=== PATIENT | female | born 1990 | race American Indian/Alaskan Native ===

== ENCOUNTER 2020-09-24 01:05 | Emergency (ER) | payer OTHER ==
[2020-09-24] MEDS ORDERED: SODIUM CHLORIDE 0.9% 1000 ML 1,000 ML IV ONE ×2 (01:23→02:40)
--- NOTE | 2020-09-24 01:24 | Event Note ---
ED Screening Note Date of service: 09/24/20 Time: :23 ED Screening Note: Patient diagnosed with Covid 1 week ago states worsening symptoms with shortness of breath and palpitations now. Patient is is not using current home supplemental O2 nor antibiotics. This initial assessment/diagnostic orders/clinical plan/treatment(s) is/are subject to change based on patients health status, clinical progression and re- assessment by fellow clinical providers in the ED. Further treatment and workup at subsequent clinical providers discretion. Patient/guardian urged not to elope from the ED as their condition may be serious if not clinically assessed and managed. Initial orders include:
[2020-09-24 01:52] LABS: Basophils # (Auto) 0.1 K/mm3 (0.0-0.1); Basophils % (Auto) 0.7 % (0.0-1.8); Eosinophils # (Auto) 0.1 K/mm3 (0.0-0.4); Eosinophils % (Auto) 1.5 % (0.0-4.3); Hematocrit 37.6 % (30.3-42.9); Hemoglobin 12.7 gm/dl (10.1-14.3); Lymphocytes # (Auto) 3.3 K/mm3 (1.2-5.4); Lymphocytes % (Auto) 38.2 % (13.4-35.0); Mean Corpuscular HGB Conc 34 % (30-34); Mean Corpuscular Volume 85 fl (79-97); Monocytes # (Auto) 0.7 K/mm3 (0.0-0.8); Monocytes % (Auto) 7.7 % (0.0-7.3); Platelet Count 386 K/mm3 (140-440); Red Blood Count 4.45 M/mm3 (3.65-5.03); Red Cell Distribution Width 13.9 % (13.2-15.2)
[2020-09-24 02:02] LABS: INR 0.93 (0.87-1.13)
[2020-09-24 02:03] LABS: Partial Thromboplastin Time 27.4 Sec. (24.2-36.6)
[2020-09-24 02:12] LABS: Alanine Aminotransferase 12 units/L (7-56); Albumin 4.8 g/dL (3.9-5); BUN/Creatinine Ratio 19; Blood Urea Nitrogen 15 mg/dL (7-17); Calcium 9.8 mg/dL (8.4-10.2); Hemolysis Index 0
--- NOTE | 2020-09-24 02:47 | Emergency Department Report ---
ED Chest Pain HPI - General Chief Complaint: Chest Pain Stated Complaint: CHEST PAIN/EMELY PUI?: No Time Seen by Provider: 09/24/20 02:39 Source: patient Mode of arrival: Ambulatory Limitations: No Limitations - History of Present Illness Initial Comments: Patient is a 30-year-old female that presents emergency room with complaints of palpitations, racing heart, chest pain and difficulty breathing. Patient states her symptoms have improved since she arrived in the hospital. Patient states her symptoms awoke her from her sleep. Patient states that her symptoms are better with rest. Patient states that her pain is a 7 out of 10. Patient states her chest pain is better with rest and worse with movement and palpation. Patient states her shortness of breath is better with rest and worse with exertion. Patient states she was recently diagnosed with Covid on September 14, 2020. Patient states she also has a dry cough. Patient denies fever and chills. Patient complains of malaise. Patient denies loss of smell. Patient denies nausea vomiting. MD Complaint: chest pain -: Sudden Onset: during rest, awoke with symptoms Pain Location: substernal Pain Radiation: none Severity scale (0 -10): 7 Quality: sharp Consistency: constant Improves With: rest Worsens With: palpation, movement re: dyspnea. denies: nausea, vomting, diaphoresis, sense of impending doom Other Symptoms: cough, palpitations. denies: fever, syncope, rash, acid taste in mouth, leg swelling, burping Treatments Prior to Arrival: none - Related Data Previous Rx's Medication Instructions Recorded Last Taken Type Azithromycin [Zithromax TAB] 500 mg PO QDAY 5 Days #5 tablet 09/24/20 Unknown Rx Allergies Allergy/AdvReac Type Severity Reaction Status Date / Time prednisolone Allergy Hives Verified 09/24/20 01:34 Heart Score - HEART Score History: Slightly suspicious EKG: Normal Age: < 45 Risk factors: No known risk factors Troponin: < normal limit HEART Score: 0 ED Review of Systems ROS: Stated complaint: CHEST PAIN/EMELY Other details as noted in HPI Constitutional: malaise. denies: chills, fever Eyes: denies: eye pain, eye discharge, vision change ENT: denies: ear pain, throat pain Respiratory: see HPI, cough, shortness of breath. denies: wheezing Cardiovascular: chest pain, palpitations Endocrine: no symptoms reported Gastrointestinal: denies: abdominal pain, nausea, vomiting, diarrhea Genitourinary: denies: urgency, dysuria, discharge Musculoskeletal: denies: back pain, joint swelling, arthralgia Skin: denies: rash, lesions Neurological: denies: headache, weakness, paresthesias Psychiatric: denies: anxiety, depression Hematological/Lymphatic: denies: easy bleeding, easy bruising ED Past Medical Hx - Past Medical History Previous Medical History?: Yes Hx Hypertension: Yes - Surgical History Past Surgical History?: No - Family History Family history: no significant - Social History Smoking Status: Never Smoker Substance Use Type: None - Medications Home Medications: Home Medications Medication Instructions Recorded Confirmed Last Taken Type Azithromycin [Zithromax TAB] 500 mg PO QDAY 5 Days #5 tablet 09/24/20 Unknown Rx ED Physical Exam - General Limitations: No Limitations General appearance: alert, in no apparent distress - Head Head exam: Present: atraumatic, normocephalic - Eye Eye exam: Present: normal appearance - ENT ENT exam: Present: mucous membranes moist - Neck Neck exam: Present: normal inspection - Respiratory Respiratory exam: Present: normal lung sounds bilaterally, chest wall tenderness (Tenderness to the chest wall. Palpation of the chest wall reproduces symptoms.). Absent: respiratory distress - Cardiovascular Cardiovascular Exam: Present: regular rate, normal rhythm. Absent: systolic murmur, diastolic murmur, rubs, gallop - GI/Abdominal GI/Abdominal exam: Present: soft, normal bowel sounds - Extremities Exam Extremities exam: Present: normal inspection - Back Exam Back exam: Present: normal inspection - Neurological Exam Neurological exam: Present: alert, oriented X3 - Psychiatric Psychiatric exam: Present: normal affect, normal mood - Skin Skin exam: Present: warm, dry, intact, normal color. Absent: rash ED Course Vital Signs 09/24/20 09/24/20 09/24/20 02:40 03:38 03:45 Temperature 98.1 F Pulse Rate 102 H Respiratory 18 16 Rate Blood Pressure 150/96 Blood Pressure 146/91 [Left] O2 Sat by Pulse 100 98 100 Oximetry 09/24/20 09/24/20 09/24/20 03:49 03:53 04:01 Temperature 98.1 F Pulse Rate 86 91 H Respiratory 14 16 16 Rate Blood Pressure 150/96 Blood Pressure 150/96 [Left] O2 Sat by Pulse 100 100 100 Oximetry 09/24/20 09/24/20 09/24/20 04:15 04:31 04:45 Temperature Pulse Rate 90 92 H 92 H Respiratory 13 18 13 Rate Blood Pressure 128/75 128/75 136/81 Blood Pressure [Left] O2 Sat by Pulse 100 100 100 Oximetry 09/24/20 09/24/20 09/24/20 05:01 05:15 05:23 Temperature Pulse Rate 110 H 94 H 94 H Respiratory 24 14 14 Rate Blood Pressure 136/81 135/82 Blood Pressure 135/82 [Left] O2 Sat by Pulse 100 100 Oximetry - Reevaluation(s) Reevaluation #1: Patient states she is feeling much better. I discussed all results and clinical findings with patient. I discussed plan of care with patient. Patient agrees with plan of care. Patient is stable for discharge. Patient will be discharged home. Patient given discharge instructions. Patient voiced understanding of discharge instructions. 09/24/20 05:44 NOEL score - Noel Score Age > 65: (0) No Aspirin use within the Past 7 Days: (0) No 3 or more CAD Risk Factors: (0) No 2 or more Angina events in past 24 hrs: (0) No Known CAD with more than 50% Stenosis: (0) No Elevated Cardiac Markers: (0) No ST Deviation Greater than 0.5mm: (0) No NOEL Score: 0 ED Medical Decision Making - Lab Data Result diagrams: 09/24/20 01:33 09/24/20 01:33 - EKG Data -: EKG Interpreted by Me EKG shows normal: sinus rhythm, axis, intervals, QRS complexes, ST-T waves Rate: tachycardia - Radiology Data Radiology results: report reviewed, image reviewed interpreted by me: Chest x-ray: No pneumonia, no pneumothorax, no foreign body, no osseous findings, no acute findings CT ANGIOGRAPHY OF THE CHEST WITH INTRAVENOUS CONTRAST AND MULTIPLANAR MIP RECONSTRUCTIONS INDICATION / CLINICAL INFORMATION: Palpitations and elevated d-dimer. COVID positive. TECHNIQUE: Axial CT images were obtained after injection of 100 cc Omnipaque 350 IV contrast using CTA protocol. 3 plane MIP / 3D reconstructions were produced. All CT scans at this location are perfo rmed using CT dose reduction for ALARA by means of automated exposure control. COMPARISON: None available. FINDINGS: There is good opacification of the pulmonary arterial system bilaterally without intraluminal filling defect to suggest acute PTE. The thoracic aorta is normal in caliber without dissection. The visualized coronary vessels are normal. The tracheobronchial tree is normal. The lung parenchyma is clear. There is no evidence of adenopathy or effusion. There is a small cyst in the right lobe of the liver. The visualized upper abdomen is otherwise unremarkable. No acute osseous abnormality is seen. IMPRESSION: No evidence of acute PTE. - Medical Decision Making Patient is a 30-year-old female that presents emergency room with complaints of palpitation, chest pain, difficulty breathing. Patient's also complained of being Covid positive and a cough. Patient chest pain is reproducible on palpation. Patient's chest pain shortness of breath are better with rest. Patient had elevated D-dimer and had a CT scan done. Patient had a CTA of the chest to rule out PE. Patient chest CTA was negative for acute findings and no PE noted. Patient's clinical findings are consistent with chest wall pain COVID-19. Patient's labs are essentially unremarkable. Patient had a negative troponins. Patient's initial lactic acid elevated but the repeat was negative prior to fluids being given. Patient's information was faxed over to her local plant engineering manager for further evaluation and treatment and risk stratification. Patient will be given treatment for COVID-19. Patient given discharge instructions. Patient stable for discharge. - Differential Diagnosis Chest pain, Covid,, difficulty breathing, palpitations, cough Critical care attestation.: If time is entered above; I have spent that time in minutes in the direct care of this critically ill patient, excluding procedure time. ED Disposition Clinical Impression: Costochondritis, Shortness of breath, Heart palpitations, COVID-19 Chest pain Qualifiers: Chest pain type: unspecified Qualified Code(s): R07.9 - Chest pain, unspecified URI (upper respiratory infection) Qualifiers: URI type: unspecified URI Qualified Code(s): J06.9 - Acute upper respiratory infection, unspecified Disposition: - TO HOME OR SELFCARE Is pt being admited?: No Does the pt Need Aspirin: No Condition: Stable Instructions: COVID-19 Frequently Asked Questions, Costochondritis, [id number], COVID-19, Cough, Adult, [id number], Shortness of Breath, Adult, COVID-19: How to Protect Yourself and Others - CDC, Prevent the Spread of COVID- 19 if You Are Sick - CDC, Chest Pain (ED) Additional Instructions: Patient to follow-up with primary care in 2 to 3 days. Patient to follow-up [facility] plant engineering manager in 2 to 3 days. Patient to self quarantine for 10 to 14 days. Patient to rest. Patient to increase water. Patient to take vitamin C, vitamin D and zinc supplements. Patient to avoid strenuous exercise or heavy lifting until cleared by primary care and plant engineering manager. Patient to take Tylenol or ibuprofen as needed for pain. Patient to take meds as directed. Patient to return to the ER if condition worsens, changes or new symptoms arise. Prescriptions: Azithromycin [Zithromax TAB] 500 mg PO QDAY 5 Days #5 tablet Referrals: PRIMARY MD CJ [Primary Care Provider] - 2-3 Days REMY FARRIS MD [Staff Physician] - 2-3 Days Time of Disposition: 05:50
--- NOTE | 2020-09-24 03:58 | Cat Scan Report ---
CT ANGIOGRAPHY OF THE CHEST WITH INTRAVENOUS CONTRAST AND MULTIPLANAR MIP RECONSTRUCTIONS INDICATION / CLINICAL INFORMATION: Palpitations and elevated d-dimer. COVID positive. TECHNIQUE: Axial CT images were obtained after injection of 100 cc Omnipaque 350 IV contrast using CTA protocol. 3 plane MIP / 3D reconstructions were produced. All CT scans at this location are performed using CT dose reduction for ALARA by means of automated exposure control. COMPARISON: None available. FINDINGS: There is good opacification of the pulmonary arterial system bilaterally without intraluminal filling defect to suggest acute PTE. The thoracic aorta is normal in caliber without dissection. The visuali zed coronary vessels are normal. The tracheobronchial tree is normal. The lung parenchyma is clear. There is no evidence of adenopathy or effusion. There is a small cyst in the right lobe of the liver. The visualized upper abdomen is otherwise unrem arkable. No acute osseous abnormality is seen. IMPRESSION: No evidence of acute PTE. Signer Name: Kang Mcmillan MD Signed: 09/24/2020 3:54 AM Workstation Name: [id number]
[2020-09-24 04:34] LABS: HCG Qualitative,Urine Negative (Negative)
[2020-09-24 05:23] VITALS: BP 135/82
--- NOTE | 2020-09-24 05:56 | XRay Report ---
CHEST 1 VIEW 5:36 AM INDICATION / CLINICAL INFORMATION: Shortness of breath. COMPARISON: None available. FINDINGS: SUPPORT DEVICES: None. HEART / MEDIASTINUM: The heart size and pulmonary vasculature are normal. LUNGS / PLEURA: No significant pulmonary or pleural abnormality. No pneumothorax. ADDITIONAL FINDINGS: No significant additional findings. IMPRESSION: No acute findings. Signer Name: Kang Mcmillan MD Signed: 09/24/2020 5:51 AM Workstation Name: [id number]
== END 2020-09-24 06:28 | disposition home or self-care (01) ==
LOC: ED 01:05
DX: U07.1 COVID-19 (principal); J06.9 Acute upper respiratory infection, unspecified; M94.0 Chondrocostal junction syndrome [Tietze]; R06.02 Shortness of breath; R00.2 Palpitations; R07.89 Other chest pain; I10 Essential (primary) hypertension; Z79.2 Long term (current) use of antibiotics; Z88.8 Allergy status to other drugs, medicaments and biological substances
CPT/HCPCS: 36415; 71045; 71275; 80053; 81025; 82140; 82728; 83615; 84145; 85025; 85379; 85610; 85730; 86140; 87040; 93005; 96360; 99285; J7030; Q9967